=== PATIENT | female | born 1975 | race Caucasian/White ===

== ENCOUNTER 2019-03-31 13:48 | Emergency (ER) | payer OTHER ==
[~2019-03-31] VITALS: Ht 162.6 cm; Wt 117.9 kg
[~2019-03-31 13:48] MED LIST: AMOX1TAB12 PO; BETANATE15 GM TP; COZAAR50 MG; DESONIDE15 GM TP; KETO10TA2 PO
[2019-03-31] MEDS ORDERED: BENADRYL50 MG (14:32)
[2019-03-31] MEDS ORDERED: LEVOTHYROXINE25 MCG (14:32)
== END 2019-03-31 18:18 | disposition home or self-care (01) ==
LOC: ER 13:48
DX: K29.60 Other gastritis without bleeding (principal); E86.0 Dehydration